=== PATIENT | female | born 1935 | race Caucasian/White ===

== ENCOUNTER 2023-12-03 17:31 | Inpatient (IN) | payer MEDICARE, SELFPAY ==
[2023-12-03] VITALS (8 sets, daily range): BP systolic 101–159; BP diastolic 65–90; BMI 21.7
--- NOTE | 2023-12-03 15:00 | ED.GENMED ---
History of Present Illness
<Tania Gustafson PA-C - Last Filed: 12/03/23 22:54>
General
Chief Complaint: Musculo-Skeletal Complaint
Time Seen by Provider: 12/03/23 15:00
Travel History
Have you had any contact with someone who has COVID-19?: Unable to Answer
Do you have any symptoms of coronavirus? Fever > 100 degrees, chills, cough, shortness of breath, sore throat, loss of taste or smell, muscle aches, or headache?: Unable to Answer
History of Present Illness
History of Present Illness:
88 y/o F with PMH of dementia, HTN presenting to the ER today with right hip pain following slip and fall. 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 Patient does not answer many of my questions
and she keeps repeating that she is in pain. She states that she slipped but is unable to recall other details of her fall. She is unsure if she hit her head. She denies headache, nausea, vomiting, chest pain, abdominal pain, shoulder pain.
Past History
<Tania Gustafson PA-C - Last Filed: 12/03/23 22:54>
Past History
ED Past Medical History: HTN, Hypercholesterolemia, Seizures (On Keppra for tremors) and Other (constipation)
ED Past Surgical History: None
Social History
Tobacco: Non-smoker
Alcohol: None
Drug: None
Personal:
Living: with family
Employment: Retired
Family History
Family History: Unable to obtain
Review of Systems
<Tania Gustafson PA-C - Last Filed: 12/03/23 22:54>
Review of Systems
All Other Systems: ROS reviewed and negative except as documented in HPI and ROS
Phy Exam
<Tania Gustfason PA-C - Last Filed: 12/03/23 22:54>
Physical Exam
Physical Exam:
General: patient is in no acute distress
Skin: warm and dry, no rashes or lesions, no ecchymosis, no lacerations
HEENT: head is normocephalic, atraumatic, no palpable hematoma
Cardiac: regular rate and rhythm, no murmurs
Pulm: normal respiratory effort, no tenderness to palpation of the chest wall, no crepitus
Abdomen: no tenderness to palpation
Musculoskeletal: patient seen spontaneously moving her cervical spine, no tenderness to palpation of the cervixal spine. right leg externally rotated and shortened, tender to palpation, 2+ popliteal pulses and 2+ dp/pt pulses.
Course
Sincerelt;Tania Gustafson PA-C - Last Filed: 12/03/23 22:54>
Orders/Labs/Results
Orders:
Orders
12/03/23 Breakfast
Cholesterol Lowering
12/03/23 15:21
CR Hip - RT w/wo Pel 2-3 Vw* Urgent
Comment:
Reason For Exam: right hip pain following fall
Include a pelvis x-ray?: Yes
12/03/23 15:28
Electrocardiogram (*1) Urgent
Reason for Study: PreOp
CT Head W/o Iv Contrast Urgent
Comment:
Reason For Exam: unwitnessed fall
12/03/23 15:30
Complete Blood Count/With Diff Urgent
Comprehensive Metabolic Panel Urgent
12/03/23 15:33
Type+Screen Urgent
PTT Urgent
Prothrombin Time Urgent
12/03/23 16:11
Morphine Sulfate 4 mg IV NOW STA
12/03/23 16:14
ORTHOPEDIC CONSULT Urgent
Consulting Provider: Bhavik Mohr
Was physician already notified: Yes
12/03/23 16:59
Potassium Chloride 10% Elixir [KCl Elixir] 40 meq PO NOW STA
12/03/23 17:00
Admit/Transfer Patient As Directed
Co-Sign Provider:
Level of Care: Inpatient admission
Assign to:: Medical/Surgical
Physician / Group: anna nielson
Diagnosis: right femoral neck fracture
Reason for Hospitalization: right femoral neck fracture
Expected length of stay greater than two midnights?: Yes
ELOS- Estimated Length of Stay in days: 3
I certify the patient meets the requirements for IP care: Yes
12/03/23 17:01
Code Status As Directed
Resuscitation Status: Do not resuscitate
Reached after discussion with pt or family/Healthcare POA: Yes
DNR Bracelet Application ONCE
12/03/23 17:14
Ketorolac [Toradol] 30 mg IV NOW STA
12/03/23 17:15
Acetaminophen 1000MG/100Ml [Ofirmev] 1,000 mg in 100 ml IV ONCE
Acetaminophen IV Indication:: No CA & No Enteral Access
12/03/23 20:08
Docusate Sodium [Colace] 100 mg PO BID
HYDROmorphone [Dilaudid] 0.5 mg IV Q4HPRN PRN
Levetiracetam [Keppra] 250 mg PO BID
Magnesium Hydroxide [Milk of Magnesia] 30 ml PO DAILYPRN PRN
Oxycodone [Roxicodone] 5 mg PO Q4HPRN PRN
Sennosides [Senokot] 17.2 mg PO BID
Simethicone [Mylicon] 80 mg PO MEALS
Tamsulosin [Flomax] 0.4 mg PO DAILYPRN PRN
12/03/23 20:08
Activity As Directed
Activity Level: Bedrest
Bladder Scan As Directed
Follow Bladder Retention/Intermittent Cath Algorithm?: Yes
PRN if no void in __ hours: 6
Comment: if not voiding 6 hrs upon arrival to floor, bladder scan & follow algorithm
Intake/ Output As Directed
Frequency: Per unit guidelines
Pneumatic Compression Sleeves As Directed
Type: Thigh high
Straight Cath As Directed
Frequency: Per Retention Algorithm
Additional Instructions: straight cath as needed per acute urinary retention algorithm for 24 hrs
Additional Instructions: for bladder scan greater than 400 mL
Vital Signs As Directed
Frequency: Per unit guidelines
DX Deep Vein Thrombosis Video Routine
12/03/23 21:00
Buspirone [BuSPAR] 7.5 mg PO BID
12/03/23 22:00
Pravastatin Sodium [Pravachol] 40 mg PO HS
12/04/23 00:00
Acetaminophen [Tylenol] 650 mg PO Q4HWA
12/04/23 08:00
Carboxymethylcellulose [Refresh Celluvisc Gel] 1 drops BOTH EYES DAILY
Famotidine [Pepcid] 20 mg PO Q72H
Fluoxetine HCl [Prozac] 10 mg PO DAILY
Swdifsnum-Xvj-Kcle [Femara] 2.5 mg PO DAILY
Abnormal Lab Results
12/03/23
15:30
RBC 4.07 L 10^6/uL
(4.20-5.40)
MCV 101.7 H fL
(81.0-99.0)
MCH 34.9 H pg
(27.0-31.0)
Absolute Neuts (auto) 6.8 H 10^3/uL
(1.4-6.5)
Absolute Lymphs (auto) 1.0 L 10^3/uL
(1.2-3.4)
Neutrophils % 81.1 H %
(42.2-75.2)
Lymphocytes % 11.6 L %
(20.5-51.1)
Potassium 3.4 L mmol/L
(3.5-5.1)
BUN 24 H mg/dl
(7-17)
Creatinine 0.5 L mg/dL
(0.6-1.0)
Glucose 119 H mg/dl
(70-99)
12/03/23 15:30
12/03/23 15:30
Vital Signs
Initial and Last Documented VS:
Initial Vital Signs
Temp Pulse Resp BP Pulse Ox
98.5 F 77 20 148/87 94
12/03/23 14:41 12/03/23 14:41 12/03/23 14:41 12/03/23 14:41 12/03/23 14:41
Last Documented Vital Signs
Temp Pulse Resp BP Pulse Ox
97.6 F 93 16 138/87 96
12/03/23 20:15 12/03/23 20:15 12/03/23 20:15 12/03/23 20:15 12/03/23 20:15
<René Martinez MD - Last Filed: 12/03/23 16:37>
Orders/Labs/Results
Orders:
Orders
12/03/23 Breakfast
Cholesterol Lowering
12/03/23 15:21
CR Hip - RT w/wo Pel 2-3 Vw* Urgent
Comment:
Reason For Exam: right hip pain following fall
Include a pelvis x-ray?: Yes
12/03/23 15:28
Electrocardiogram (*1) Urgent
Reason for Study: PreOp
CT Head W/o Iv Contrast Urgent
Comment:
Reason For Exam: unwitnessed fall
12/03/23 15:30
Complete Blood Count/With Diff Urgent
Comprehensive Metabolic Panel Urgent
12/03/23 15:33
Type+Screen Urgent
PTT Urgent
Prothrombin Time Urgent
12/03/23 16:11
Morphine Sulfate 4 mg IV NOW STA
12/03/23 16:14
ORTHOPEDIC CONSULT Urgent
Consulting Provider: Bhavik Mohr
Was physician already notified: Yes
12/03/23 16:59
Potassium Chloride 10% Elixir [KCl Elixir] 40 meq PO NOW STA
12/03/23 17:00
Admit/Transfer Patient As Directed
Co-Sign Provider:
Level of Care: Inpatient admission
Assign to:: Medical/Surgical
Physician / Group: anna nielson
Diagnosis: right femoral neck fracture
Reason for Hospitalization: right femoral neck fracture
Expected length of stay greater than two midnights?: Yes
ELOS- Estimated Length of Stay in days: 3
I certify the patient meets the requirements for IP care: Yes
12/03/23 17:01
Code Status As Directed
Resuscitation Status: Do not resuscitate
Reached after discussion with pt or family/Healthcare POA: Yes
DNR Bracelet Application ONCE
12/03/23 17:14
Ketorolac [Toradol] 30 mg IV NOW STA
12/03/23 17:15
Acetaminophen 1000MG/100Ml [Ofirmev] 1,000 mg in 100 ml IV ONCE
Acetaminophen IV Indication:: No CA & No Enteral Access
12/03/23 20:08
Docusate Sodium [Colace] 100 mg PO BID
HYDROmorphone [Dilaudid] 0.5 mg IV Q4HPRN PRN
Levetiracetam [Keppra] 250 mg PO BID
Magnesium Hydroxide [Milk of Magnesia] 30 ml PO DAILYPRN PRN
Oxycodone [Roxicodone] 5 mg PO Q4HPRN PRN
Sennosides [Senokot] 17.2 mg PO BID
Simethicone [Mylicon] 80 mg PO MEALS
Tamsulosin [Flomax] 0.4 mg PO DAILYPRN PRN
12/03/23 20:08
Activity As Directed
Activity Level: Bedrest
Bladder Scan As Directed
Follow Bladder Retention/Intermittent Cath Algorithm?: Yes
PRN if no void in __ hours: 6
Comment: if not voiding 6 hrs upon arrival to floor, bladder scan & follow algorithm
Intake/ Output As Directed
Frequency: Per unit guidelines
Pneumatic Compression Sleeves As Directed
Type: Thigh high
Straight Cath As Directed
Frequency: Per Retention Algorithm
Additional Instructions: straight cath as needed per acute urinary retention algorithm for 24 hrs
Additional Instructions: for bladder scan greater than 400 mL
Vital Signs As Directed
Frequency: Per unit guidelines
DX Deep Vein Thrombosis Video Routine
12/03/23 21:00
Buspirone [BuSPAR] 7.5 mg PO BID
12/03/23 22:00
Pravastatin Sodium [Pravachol] 40 mg PO HS
12/04/23 00:00
Acetaminophen [Tylenol] 650 mg PO Q4HWA
12/04/23 08:00
Carboxymethylcellulose [Refresh Celluvisc Gel] 1 drops BOTH EYES DAILY
Famotidine [Pepcid] 20 mg PO Q72H
Fluoxetine HCl [Prozac] 10 mg PO DAILY
Rwaozvkuj-Vmt-Yqfm [Femara] 2.5 mg PO DAILY
Abnormal Lab Results
12/03/23
15:30
RBC 4.07 L 10^6/uL
(4.20-5.40)
MCV 101.7 H fL
(81.0-99.0)
MCH 34.9 H pg
(27.0-31.0)
Absolute Neuts (auto) 6.8 H 10^3/uL
(1.4-6.5)
Absolute Lymphs (auto) 1.0 L 10^3/uL
(1.2-3.4)
Neutrophils % 81.1 H %
(42.2-75.2)
Lymphocytes % 11.6 L %
(20.5-51.1)
Potassium 3.4 L mmol/L
(3.5-5.1)
BUN 24 H mg/dl
(7-17)
Creatinine 0.5 L mg/dL
(0.6-1.0)
Glucose 119 H mg/dl
(70-99)
12/03/23 15:30
12/03/23 15:30
Vital Signs
Initial and Last Documented VS:
Initial Vital Signs
Temp Pulse Resp BP Pulse Ox
98.5 F 77 20 148/87 94
12/03/23 14:41 12/03/23 14:41 12/03/23 14:41 12/03/23 14:41 12/03/23 14:41
Last Documented Vital Signs
Temp Pulse Resp BP Pulse Ox
97.6 F 93 16 138/87 96
12/03/23 20:15 12/03/23 20:15 12/03/23 20:15 12/03/23 20:15 12/03/23 20:15
<Tania Gustafson PA-C - Last Filed: 12/03/23 22:54>
MDM/Problems Addressed
Differential Diagnosis Includes:
ddx include right hip fracture, right hip dislocation, musculoskeletal sprain/strain, intracerebral hemorrhage
MDM/Problems Addressed:
right hip pain
Chronic conditions affecting care: HTN and Neurological disorder (dementia)
Acute Exacerbation and/or Progression of Chronic Illness:
dementia
<Tania Gustafson PA-C - Last Filed: 12/03/23 22:54>
*Pulse Oximetry
Patient hypoxic: no
*Critical Care Note
Total Time (30-74mins, 75-104mins- exclusive of procedures): Not Applicable
Data Reviewed
Review of Other/Old Records Reveals: Discharge Summary (reviewed discharge summary from 07/09/21)
Source: patient and records
<Tania Gustafson PA-C - Last Filed: 12/03/23 22:54>
Patient Management
Discussion with other providers: Hospitalist and Other (orthopedics, plan for surgery tomorrow )
Escalation/DeEscalation of care consider admission/obs:
please see attending note
ED Attending Note
<BOBY aBron-Crispin - Last Filed: 12/03/23 22:54>
-
Portions of this chart may have been created with voice recognition software.� Occasional wrong word or��sound alike� substitutions may have occurred due to the inherent limitations of voice recognition software.
<René Martinez MD - Last Filed: 12/03/23 16:37>
ED Attending Note
Patient seen and examined by attending physician: Yes
ED Attending Note:
HPI: 88-year-old female with history as document presents from [facility] for evaluation after a fall. Patient apparently had an unwitnessed fall today found by staff with significant right hip pain. Patient continues to complain of pain and
points to her right hip but is otherwise limited as a historian�she has significant dementia and is primarily Icelandic-speaking and even with supervisor prop making very difficult to communicate. No reported head trauma�mental status reportedly at baseline.
She is not on any blood thinners per medication list.
ROS: N/A�dementia
Physical exam:
General: Awake, alert, lying in bed complaining of pain in her right hip
Head: Normocephalic, atraumatic
Eyes: Conjunctiva normal, pupils equal round reactive to light bilaterally
Throat: Airway intact, handling secretions
Neck: Trachea midline, no tenderness in the cervical spine
Lungs: Breathing comfortably no distress
Heart: Regular rate; no chest wall or rib tenderness
Abd: Soft, non distended, nontender
Neuro: Moving all extremities including distal right lower extremity
Skin: no rash
Extremities: Right lower extremity shortened and externally rotated, significant pain with attempted passive range of motion of the right hip including internal and external rotation; she has a good palpable right DP pulse; rest of extremities
atraumatic and allows for passive range of motion without discomfort
Differential diagnosis: Hip fracture, hip dislocation, hip contusion
Medical decision makin-year-old female presents after an unwitnessed fall with a right hip injury. She has findings right hip fracture on exam. Neurovascularly intact. No other injuries noted on secondary survey. Placed an IV check labs
including a CBC and a CMP, coags, type and screen. Check EKG. Will send for CT head in an abundance of caution although no reported head trauma no signs of head trauma. Check an x-ray of the hip to confirm fracture. Treat pain. Reassess after
the above.
Labs reviewed: CBC and CMP essentially unremarkable. EKG shows sinus rhythm. CT head negative. X-ray of the hip reviewed by me shows fracture. Discussed with orthopedics will plan tentatively for OR in the morning. PA discussed with hospitalist
for admission.
Chronic conditions affecting care: Dementia
Acute exacerbation or progression of chronic illness: N/A
History source: Patient, records, penitentiary, ambulance crew
Data reviewed: Records
Medications/testing considered: N/A
Social determinants of health: N/A
Discussion with other providers: Orthopedics, hospitalist
Discharge Plan
Departure
Patient Disposition: Admit
Date of Disposition: 12/03/23
Time of Disposition: 16:28
Admit to: Med/Surg
Presentation/result/management discussed w/ accepting MD/DO: Hospitalist
Patient with high blood pressure during this ER visit?: Yes
Condition: Fair
Discharge Problem:
Closed fracture of right hip
Interventions
Interventions:
*Risk Screen - Suicide Last Done: 12/03/23 14:41
*General Assessment Last Done: 12/03/23 14:41
*Neglect/Abuse Screening Last Done: 12/03/23 14:41
ED- Fall Risk Assessment Last Done: 12/03/23 15:30
*ED COVID-19 Vaccine History Last Done: 12/03/23 20:20
*Nursing Disposition Last Done: 12/03/23 20:20
ED-Musculoskeletal Assessment Last Done: 12/03/23 15:30
Discharge Date and Time
Discharge Date/Time: 12/03/23 20:21
[2023-12-03 15:36] LABS: % Basophils 0.4 % (0-2); % Eosinophils 0.6 % (0-6); % Immature Granulocytes 0.5 % (0-0.5); % Lymphocytes 11.6 % (20.5-51.1); % Monocytes 5.8 % (1.7-9.3); % Neutrophils 81.1 % (42.2-75.2); Absolute Eosinophils 0.1 10^3/uL (0-0.7); Absolute Monocytes 0.5 10^3/uL (0.1-0.6); Absolute Neutrophils 6.8 10^3/uL (1.4-6.5); Hematocrit 41.4 % (37.0-47.0); Hemoglobin 14.2 g/dL (12.0-16.0); Mean Corp Hgb Conc. 34.3 g/dL (33.0-37.0); Mean Corpuscular Hgb 34.9 pg (27.0-31.0); Mean Corpuscular Volume 101.7 fL (81.0-99.0); Mean Platelet Volume 9.5 fL (7.4-10.4); Nucleated Red Blood Cells % 0 %; Platelet Count 242 10^3/uL (130-400); Red Blood Cell Count 4.07 10^6/uL (4.20-5.40); White Blood Cell Count 8.4 10^3/uL (4.8-10.8)
[2023-12-03 15:50] LABS: APTT 25.3 Sec (23.4-35.0); INR 0.97; PT 12.7 Sec (11.4-14.6)
[2023-12-03 16:03] LABS: ALT (SGPT) 28 U/L (0-35); AST (SGOT) 31 U/L (14-36); Albumin 4.2 g/dl (3.5-5.0); Alkaline Phosphatase 83 U/L (38-126); Blood Urea Nitrogen 24 mg/dl (7-17); Calcium 9.6 mg/dl (8.4-10.2); Carbon Dioxide 28 mmol/L (22-30); Chloride 103 mmol/L (98-107); Glucose 119 mg/dl (70-99); Potassium 3.4 mmol/L (3.5-5.1); Sodium 138 mmol/L (135-145); Total Bilirubin 0.6 mg/dl (0.2-1.3); Total Protein 6.5 g/dl (6.3-8.2); eGFR > 60.00
[2023-12-03] MEDS: MORPHINE SULFATE 4 MG IV (16:14)
--- NOTE | 2023-12-03 16:33 | HPS.HSE ---
Addendum entered and electronically signed by Cynthia Juárez MD 12/03/23 17:35:
Patient seen and examined independently--agree with AUTOMOTIVE GENERATOR REPAIRER note--used language line to try to communicate with patient--patient complains of pain in her right leg, states nothing else is wrong, does have family in the area but did not pursue any further
inquiries because of the acute pain
GENERAL: Elderly chronically ill-appearing female in significant pain
HEENT: NC/AT--poor dentition
HEART: regular rate and rhythm, +S1, +S2
LUNGS : clear to auscultation bilaterally
ABDOM: soft, nontender, nondistended, + bowel sounds
EXT: no cyanosis, clubbing, or edema--right leg shortened and externally rotated
fall--unclear trigger for the fall--sustained right femoral neck fracture--patient significant pain--dose IV Toradol and IV Tylenol now--fentanyl did not work, received 4 mg of morphine 30 minutes prior which also has not taken effect--moving
forward, will change to Dilaudid--orthopedics consulted--plan for OR in a.m.--head CT negative
hypokalemia unclear cause--replete
Hyperlipidemia--statin continued
Myoclonus-- Continue Keppra.�
Breast cancer--Continue Femara
depression/anxiety--buspirone continued--fluoxetine continued
GERD--PPI continued
DVT prophylaxis-scd
CODE status--DNR
Original Note:
Family Physician
-
Family Physician: Francisco Lu
Chief Complaint
-
fall
History of Present Illness
88 year old with PMH for HTN, HLD, breast ca, dementia, anxiety, depression, myoclonus presented to us s/p fall. patient is poor historian. asking for pain medication. attempted language line but was not helpful. patient constantly crying loud with
right hip pain.
x ray with right femoral neck fracture. admitting for further management.
Medical History
Past Medical History
Past Medical History: Reports Other
Additional Past Medical History:
GERD
HTN
breat ca
dementia
anxiety disorder
depression
myoclonus
Past Surgical History: Reports None
Social History
Unable to obtain full social history at this time due to: Dementia
Family History
Family History: Not pertinent
Allergies / Home Medications
Allergies reflects when Allergies were last updated in [facility].
Home Medications with original date entered in [facility]
Allergy/Medication List:
Allergies
Allergy/AdvReac Type Severity Reaction Status Date / Time
No Known Allergies Allergy Unverified 06/28/21 22:10
Home Medications
acetaminophen 325 mg tablet 650 mg PO DAILY PRN mild pain/temp>100F 06/28/21
carboxymethylcellulose sodium 0.25 % eye drops in a dropperette (TheraTears) 1 drp BOTH EYES DAILY Eye condition 06/28/21
cholecalciferol (vitamin D3) 25 mcg (1,000 unit) tablet 1,000 units PO DAILY Supplement 06/28/21
letrozole 2.5 mg tablet (Femara) 2.5 mg PO DAILY Cancer 06/28/21
pravastatin 40 mg tablet 40 mg PO HS High cholesterol ##0 06/28/21
fluoxetine 10 mg capsule 10 mg PO DAILY Mental Health 07/06/21
docusate sodium 100 mg capsule 100 mg PO BID 07/09/21
famotidine 20 mg tablet 20 mg PO Q72H 07/09/21
levetiracetam 250 mg tablet 250 mg PO BID 07/09/21
acetaminophen 325 mg tablet 650 mg PO TID 12/03/23
bisacodyl 10 mg rectal suppository (Dulcolax (bisacodyl)) 10 mg HI DAILY PRN if mom ineffective after 24hrs 12/03/23
buspirone 7.5 mg tablet 7.5 mg PO BID 12/03/23
diclofenac sodium 1 % topical gel 1 ea topical BID 12/03/23
lidocaine 5 % topical cream (Hemorrhoidal Relief) 1 applic topical Q6H PRN rectal pain 12/03/23
magnesium hydroxide 400 mg/5 mL oral suspension (Milk of Magnesia) 30 ml PO DAILY PRN if no bm x 3 days 12/03/23
polyethylene glycol 3350 17 gram oral powder packet (Miralax) 17 g PO Q48H 12/03/23
sennosides 8.6 mg tablet (senna) 8.6 mg PO HS 12/03/23
simethicone 80 mg chewable tablet 80 mg PO MEALS 12/03/23
sodium phosphates 19 gram-7 gram/118 mL enema (Fleet Enema) 118 ml HI DAILY PRN if dulcolax ineffective after 24hrs 12/03/23
Review of Systems
-
Unable to obtain full review of systems at this time due to: Acuity
Physical Exam
Vital Signs
Vital Signs
Temp Pulse Resp BP Pulse Ox
98.5 F 77 20 148/87 94
12/03/23 14:41 12/03/23 14:41 12/03/23 14:41 12/03/23 14:41 12/03/23 14:41
Physical Exam
General: Well Developed, Well Nourished and No Apparent Distress
HEENT: NormoCephalic, Moist mucous membranes and Atraumatic
Respiratory: Clear
Cardiac: S1/S2 and Regular Rhythm; No Murmur or Rub
GI: Soft, Non Tender, Non Distended and Normal Bowel Sounds; No Organomegaly
Rectal: Deferred by Provider
Musculoskeletal: No Clubbing, No Cyanosis and Other (right LE shortened, externally rotated)
Skin: No Rash
Neuro: Nonfocal/grossly intact
Psych: Confused
Laboratory Results
-
12/03/23 15:30
12/03/23 15:30
Laboratory Results
PT 12.7 Sec (11.4-14.6) 12/03/23 15:33
INR 0.97 12/03/23 15:33
APTT 25.3 Sec (23.4-35.0) 12/03/23 15:33
Total Bilirubin 0.6 mg/dl (0.2-1.3) 12/03/23 15:30
AST 31 U/L (14-36) 12/03/23 15:30
ALT 28 U/L (0-35) 12/03/23 15:30
Alkaline Phosphatase 83 U/L (38-126) 12/03/23 15:30
Data Reviewed
-
Diagnostic Radiology: Report Reviewed by me
Lab Data: Labs Reviewed by me
Impression/Plan
-
#fall/ right femoral neck fracture
-hip precaution
-npo after MN
-Tylenol, oxy, Dilaudid prn for pain
-head CT with No acute intracranial abnormality.
-hip x ray with Right femoral neck fracture, as above.
-orthopedics consulted
#hypokalemia unclear cause
-k 3.4
-oral kcl
-ctm
#Hyperlipidemia
-statin continued
#Myoclonus: Continue Keppra.�
#Breast cancer: Continue Femara
#depression/anxiety
-buspirone continued
-fluoxetine continued
#GERD
-PPI continued
#DVT prophylaxis
-scd
#CODE status
-DNR
[2023-12-03] MEDS: KCL ELIXIR 40 MEQ PO (17:30)
[2023-12-03] MEDS: TORADOL 30 MG IV (17:31)
[2023-12-03] MEDS: OFIRMEV 100 IV (17:43)
--- NOTE | 2023-12-03 18:54 | W.PN.UPDATE ---
Update Note
Progress Note Update
88-year-old female resident of [facility] with history of dementia. This patient sustained a fall earlier today injuring her right hip. She has a history of hypertension, hyperlipidemia, breast carcinoma, dementia, anxiety,
depression, myoclonus, and GERD. Diagnostic studies have confirmed a displaced right hip femoral neck fracture. Treatment options have been discussed with the patient's , Akil, at [phone]. Risks, benefits, and possible
complications have been discussed. Questions have been answered. Patient's consents for Patricia to undergo right hip cemented bipolar endoprosthesis as well as a blood transfusion if required during this admission. Surgical site has been
marked. Full consult has been dictated in [facility]. Surgery is tentatively for the morning of Wednesday, December 04, pending medical clearance and availability of operating room.
--- NOTE | 2023-12-03 20:00 | PTCARENOTE ---
Received patient via stretcher accompanied by ED PCT. Patient transferred into bed without difficulty. Patient Hebrew speaking, cork insulation setter phone at bedside but patient screaming 'give me the shot'. Unable to participate in admission/assessment at
this time. Hygiene care provided, call schumacher within reach, VSS. PRN Dilaudid given as per orders, see MAR.
[2023-12-03] MEDS: DILAUDID 0.5 MG IV (20:22)
[2023-12-03] MEDS: KEPPRA PO (23:14)
[2023-12-03] MEDS: SENOKOT PO (23:14)
[2023-12-03] MEDS: PRAVACHOL PO (23:14)
[2023-12-03] MEDS: COLACE PO (23:14)
[2023-12-03] MEDS: MYLICON PO (23:14)
[2023-12-04] VITALS (42 sets, daily range): BP systolic 74–117; BP diastolic 38–90
[2023-12-04] MEDS: ROXICODONE 5 MG PO ×4 (00:08→20:00)
[2023-12-04] MEDS: TYLENOL PO ×4 (00:18→23:56)
[2023-12-04] MEDS: DILAUDID 0.5 MG IV (04:25)
[2023-12-04] MEDS: TYLENOL 650 MG PO ×3 (04:25→20:01)
[2023-12-04 07:16] LABS: Hemoglobin 12.8 g/dL (12.0-16.0); Mean Corp Hgb Conc. 33.7 g/dL (33.0-37.0); Mean Corpuscular Hgb 34.2 pg (27.0-31.0); Mean Corpuscular Volume 101.6 fL (81.0-99.0); Mean Platelet Volume 10.4 fL (7.4-10.4); Platelet Count 199 10^3/uL (130-400); Red Blood Cell Count 3.74 10^6/uL (4.20-5.40); White Blood Cell Count 6.7 10^3/uL (4.8-10.8)
[2023-12-04 07:22] LABS: Blood Urea Nitrogen 27 mg/dl (7-17); Calcium 9.4 mg/dl (8.4-10.2); Carbon Dioxide 28 mmol/L (22-30); Chloride 102 mmol/L (98-107); Estimated Creatinine Clearance 60 ml/min; Glucose 138 mg/dl (70-99); Potassium 3.4 mmol/L (3.5-5.1); Sodium 138 mmol/L (135-145); eGFR > 60.00
--- NOTE | 2023-12-04 10:23 | W.PN.HOSP.TC ---
Today's Communication/Plan
-
seen in PACU
as per ortho
Assessment / Plan
Assessment / Plan
pt is an 88 year old female
fall--unclear trigger for the fall--sustained right femoral neck fracture--apprec ortho--s/p repair--cont Dilaudid, tylenol, oxy for pain--post op will need PT/OT
hypokalemia unclear cause--replete
Hyperlipidemia--statin continued
Myoclonus-- Continue Keppra.�
Breast cancer--Continue Femara
depression/anxiety--buspirone continued--fluoxetine continued
GERD--PPI continued
DVT prophylaxis-scd
CODE status--DNR
Anticipated Discharge: > 48 hours
Subjective/Interval History
-
Date of Service: December 04, 2023
pt seen in PACU, just came out of OR
Objective Data
-
Labs:
Laboratory Results
12/04/23
05:31
WBC 6.7
Hgb 12.8
Hct 38.0
Plt Count 199
Sodium 138
Potassium 3.4 L
Chloride 102
Carbon Dioxide 28
BUN 27 H
Creatinine 0.4 L
Glucose 138 H
Calcium 9.4
Vital Signs:
max temp for 24 hours
12/03/23
14:41
Temp 98.5 F
Vital Signs
Temp Pulse Resp BP Pulse Ox
98.4 F 91 18 106/67 99
12/04/23 07:44 12/04/23 10:15 12/04/23 10:15 12/04/23 10:09 12/04/23 10:15
I&O
12/03/23 12/04/23 12/05/23
06:59 06:59 06:59
Intake Total 160 / 160
Balance 160 / 160
Review of Systems
-
Unable to obtain full review of systems at this time due to: Other (just came out of OR)
Physical Exam
-
General: Appears Chronically Ill
HEENT: Normocephalic and Atraumatic
Respiratory: Rhonchi
Cardiac: Regular Rhythm and S1/S2
GI: Soft, Nontender, Nondistended and Normal Bowel Sounds
Musculoskeletal: No Clubbing, No Cyanosis and No Edema
Neuro: Awake
Psych: Calm
[2023-12-04] MEDS: SUBLIMAZE 25 MCG IV (10:29)
[2023-12-04] MEDS: NSS 1000 IV (10:46)
[2023-12-04] MEDS: NEO-SYNEPHRINE 250 IV (13:05)
[2023-12-04] MEDS: MYLICON PO ×2 (14:49)
[2023-12-04] MEDS: COLACE PO (14:49)
[2023-12-04] MEDS: SENOKOT PO (14:50)
[2023-12-04] MEDS: REFRESH CELLUVISC GEL 1 DROPS BOTH EYES (14:57)
[2023-12-04] MEDS: KCL 20 MEQ PO (14:57)
[2023-12-04] MEDS: PEPCID 20 MG PO (14:57)
[2023-12-04] MEDS: FEMARA 2.5 MG PO (14:57)
[2023-12-04] MEDS: KEPPRA PO (14:58)
[2023-12-04] MEDS: PROZAC PO (15:01)
--- NOTE | 2023-12-04 15:51 | PTCARENOTE ---
Addendum entered by Karthik Segundo RN 12/04/23 18:51:
Aquacell dressing C/D/I; Nuerovascular check done; Some movement noted in RLE. Denies pain at this time
Original Note:
Rec'd Pt from PACU, post-op right dayday-arthroplasty. Transferred to IMU due to hypotension and start of TATA drip. Pt uzbek-speaking (speaks some greenlandic) and demented at baseline. R arm INT came out during move to bed - attempted to move TATA
drip moved to LFA INT and line would no longer flush. VAT notified to place new line. Will continue to monitor and assess.
[2023-12-04] MEDS: ANCEF 5 IV (16:24)
[2023-12-04] MEDS: DILAUDID 0.25 MG IV ×2 (17:45→22:03)
[2023-12-04] MEDS: MYLICON 80 MG PO (17:45)
[2023-12-04] MEDS: ASPIRIN 325 MG PO (17:45)
[2023-12-04] MEDS: SENOKOT 17.1999999999999993 MG PO (20:01)
[2023-12-04] MEDS: PRAVACHOL 40 MG PO (20:01)
[2023-12-04] MEDS: COLACE 100 MG PO (20:01)
[2023-12-04] MEDS: KEPPRA 250 MG PO (20:45)
[2023-12-05] VITALS (9 sets, daily range): BP systolic 94–120; BP diastolic 51–103; PULSE 82; O2SAT 94
[2023-12-05] MEDS: ANCEF 5 IV (00:06)
--- NOTE | 2023-12-05 00:37 | PTCARENOTE ---
Pt received at beginning of shift resting in bed. AAOx1 to name. Confused. Admits to pain, unable to describe. Yells out 'don't leave me!' Brings arms to chest and yells 'I'm nervous!' Emotional support given. Aquacel dressing to right hip c/d/i.
Neurovascular checks to right LE as documented. VSS. Afebrile. SR/ST on CM. Slightly tachypneic when anxious. POX 1L 96%. Grossly incontinent large amount urine. Pt cleansed and changed. Purewick placed. LAC INT not patent, pulled out underneath
dressing. Left wrist INT pulled by pt and bleeding. Again, pt cleansed and changed. New INT in right forearm. Mikye gtt infusing at 20mcq/min (6ml/hr). SBP >90 for past 4 hrs. Tapered off. Bev OSULLIVAN TT'd and made aware. IVF's infusing as ordered.
Taking PO meds without issue. Venous foot pumps on and working. No change from previous assessment. Call schumacher remains within reach. Will continue to monitor.
[2023-12-05] MEDS: DILAUDID 0.25 MG IV ×3 (01:47→22:48)
[2023-12-05] MEDS: TYLENOL PO ×3 (03:53→16:05)
[2023-12-05] MEDS: NSS 1000 IV (03:53)
--- NOTE | 2023-12-05 05:15 | PTCARENOTE ---
Pt received Dilaudid throughout shift for pain to right hip. Aquacel dressing remains c/d/i. Ice pack applied intermittently for 20 mins on/off. Pt has good pain relief with Dilaudid when given. Pt grossly incontinent urine x 1 overnight. Purewick
was placed with only 50mls in canister. Bladder scanned for only 137mls at approx 0130. Neurovascular checks unchanged. AM labs obtained. Pt maintained on turning schedule. Call schumacher remains within reach. Will continue to monitor.
[2023-12-05 05:19] LABS: Hematocrit 26.8 % (37.0-47.0); Mean Corp Hgb Conc. 33.6 g/dL (33.0-37.0); Mean Corpuscular Volume 104.3 fL (81.0-99.0); Mean Platelet Volume 10.4 fL (7.4-10.4); Platelet Count 149 10^3/uL (130-400); Red Blood Cell Count 2.57 10^6/uL (4.20-5.40); Red Cell Dist. Width 13.2 % (11.5-14.5); White Blood Cell Count 7.5 10^3/uL (4.8-10.8)
[2023-12-05 05:37] LABS: Blood Urea Nitrogen 22 mg/dl (7-17); Calcium 8.2 mg/dl (8.4-10.2); Carbon Dioxide 29 mmol/L (22-30); Chloride 103 mmol/L (98-107); Estimated Creatinine Clearance 60 ml/min; Glucose 100 mg/dl (70-99); Potassium 4.2 mmol/L (3.5-5.1); Sodium 136 mmol/L (135-145); eGFR > 60.00
[2023-12-05] MEDS: REFRESH CELLUVISC GEL 1 DROPS BOTH EYES (08:04)
[2023-12-05] MEDS: KEPPRA 250 MG PO ×2 (08:04→19:43)
[2023-12-05] MEDS: MYLICON 80 MG PO (08:04)
[2023-12-05] MEDS: FEMARA 2.5 MG PO (08:05)
[2023-12-05] MEDS: COLACE 100 MG PO ×2 (08:05→19:42)
[2023-12-05] MEDS: ASPIRIN 325 MG PO (08:05)
[2023-12-05] MEDS: SENOKOT 17.1999999999999993 MG PO ×2 (08:05→19:42)
[2023-12-05] MEDS: TYLENOL 650 MG PO ×3 (08:06→23:08)
[2023-12-05] MEDS: PROZAC 10 MG PO (08:17)
--- NOTE | 2023-12-05 08:24 | W.PN.HOSP.TC ---
Today's Communication/Plan
-
transfer to 2S
PT/OT
d/c planning
Assessment / Plan
Assessment / Plan
pt is an 88 year old female
fall--unclear trigger for the fall--sustained right femoral neck fracture--apprec ortho--s/p repair--pain better--cont Dilaudid, tylenol, oxy for pain--post op will need PT/OT
post op hypotension--unclear cause--possible anesthesia effect--was on kamari now off--transfer back to 2S
acute anemia due to blood loss from long bone fracture and post op dilutional--follow--now need for transfusion currently
hypokalemia --unclear cause--replete
Hyperlipidemia--statin continued
Myoclonus-- Continue Keppra.�
Breast cancer--Continue Femara
depression/anxiety--buspirone continued--fluoxetine continued
GERD--PPI continued
DVT prophylaxis-scd
CODE status--DNR
transfer back to 2S
Anticipated Discharge: 24 - 48 hours
Subjective/Interval History
-
Date of Service: December 05, 2023
hip pain better
Objective Data
-
Labs:
Laboratory Results
12/05/23
04:33
WBC 7.5
Hgb 9.0 L D
Hct 26.8 L
Plt Count 149 D
Sodium 136
Potassium 4.2
Chloride 103
Carbon Dioxide 29
BUN 22 H
Creatinine 0.4 L
Glucose 100 H
Calcium 8.2 L
Vital Signs:
max temp for 24 hours
12/04/23
23:52
Temp 97.8 F
Vital Signs
Temp Pulse Resp BP Pulse Ox
97.8 F 78 14 102/57 100
12/05/23 03:47 12/05/23 06:00 12/05/23 06:00 12/05/23 06:00 12/05/23 06:00
I&O
12/04/23 12/05/23 12/06/23
06:59 06:59 06:59
Intake Total 160 / 160 2129
Output Total 50 / 50
Balance 160 / 160 2079
Review of Systems
-
Unable to obtain full review of systems at this time due to: Language Barrier
Physical Exam
-
General: Appears Chronically Ill
HEENT: Normocephalic and Atraumatic
Respiratory: Clear to Auscultation; Negative Wheezes or Rhonchi
Cardiac: Regular Rhythm and S1/S2; Negative Murmur
GI: Soft, Nontender, Nondistended and Normal Bowel Sounds
Musculoskeletal: No Clubbing, No Cyanosis and No Edema
Neuro: Awake and Alert
--- NOTE | 2023-12-05 09:20 | W.PN.ORTHO ---
Today's Communication / Plan
-
Appreciate Dr. Juárez, continue Tx
IMU-->2S transfer within the hour per Dr. ARVIZU
Trend Hgb, however would expect this drop from yesterday (Fx/Sx/dilutional). Currently 9.0, will hold on transfusion for now
PT/OT if deemed safe, THPs x 6 weeks
WBAT B/L LEs on walker/assistance
ASA 325mg daily x 4 weeks for ppx
Dressing to remain 10 days
Leeann out in 2 weeks (out at [facility] [place])
If leeann out at [facility] outpatient Ortho follow-up in 4 weeks
Assessment
.
Distal Motor Intact: Yes
Dressing:
Clean, dry and intact. Aquacel in place right hip
Assessment:
POD#1 Right Hip Ricardo
Calf soft, nontender
DNVI RLE
Plan
.
Surgery / Date: Right hip Ricardo Dec 11 (Fani)
DVT Prophylaxis: Aspirin
Activity:
Out of bed. WBAT RLE on walker/assistance
PT/OT. THPs x 6 weeks
Discharge Plan: [facility]
Subjective
.
.:
Patient resting comfortably this AM. Language barrier, however she reports better pain control
Vital Signs and Labs
.
Vital Signs and Labs:
Lab Results
12/05/23 04:33
12/05/23 04:33
Temp Pulse Resp BP Pulse Ox
98.6 F 78 14 102/57 97
12/05/23 08:36 12/05/23 06:00 12/05/23 06:00 12/05/23 06:00 12/05/23 08:56
PT 12.7 Sec (11.4-14.6) 12/03/23 15:33
INR 0.97 12/03/23 15:33
--- NOTE | 2023-12-05 10:30 | PTCARENOTE ---
Received patient from IMU. Assessment completed and documented in shift assessment.
Completed AM/incontinence care with PCT. Replaced purewick. Patient appeared to be in discomfort and medicated with IV Dilaudid.Attempted to use video special effects designer because patient began crying out. Unable to get a full understanding of what patient
was yelling about. Glue Mounter Operator stated that patient said 'I'm late for [facility]/I'm feeling loose. I'm uncomfortable from being in this position.' Explained to patient via special effects designer services that she was in the hospital, and that I gave her pain
medication. Patient drifting off to sleep.
--- NOTE | 2023-12-05 11:24 | CM ---
Addendum entered by Jose Thomas 12/05/23 13:41:
CM met with pt's son Anurag and spoke to pt's daughter Yue on conference call, updated on discharge planning progress. Both pt's son Anurag and daughter Yue agree opt returns back to [facility] for a detention care with skilled services that
recommended by PT and OT.
IMM reviewed with pt's son Anurag, signed, placed in chart, pt's son has a copy.
Pt's clinical faxed to [facility] for review.
D/C plan: return back to [facility] for a detention care with skilled services.
Original Note:
CM following re: discharge planning.
Reviewed pt's chart, met with pt and spoke to pt's son Anurag [phone] and spoke to [facility] nursing cashiers supervisor Paula.
Pt is an 88 year old female, admitted with primary dx of POD#1 Right Hip Ricardo.
Pt is primary Tristanian speaking, information obtained from [facility] nursing cashiers supervisor Paula. Per Paula, pt has been a buttermaker care resident at [facility] since 07/11/2021, on Medicaid bed hold. Pt used to live with her
Yao [phone] in a [facility], has daughter Yue [phone], daughter Christi [phone] and son Anurag [phone]. Per nursing cashiers supervisor Paula, pt ambulates with a walker at baseline and pt will be accepted back when medically stable.
CM spoke pattie pt's son Anurag and he stated he is in [place] today and he will come to to meet with his mother around 12:30 p.m. Per son Anurag, pt will return back to [facility] when medically stable.
[facility] nursing report: [phone]
Discharge instructions fax: [phone]
D/C plan: return back to [facility] for skilled services and to continue on buttermaker care.
CM will follow to assist pt with discharge back to [facility].
[2023-12-05] MEDS: MYLICON PO ×2 (12:41→17:43)
[2023-12-05] MEDS: PRAVACHOL 40 MG PO (21:29)
[2023-12-06 00:15] VITALS: BP 96/54
[2023-12-06] MEDS: TYLENOL 650 MG PO ×3 (05:23→13:00)
[2023-12-06] MEDS: DILAUDID 0.25 MG IV (05:33)
[2023-12-06 06:21] LABS: Hematocrit 24.1 % (37.0-47.0); Hemoglobin 8.2 g/dL (12.0-16.0); Mean Corpuscular Hgb 34.9 pg (27.0-31.0); Mean Corpuscular Volume 102.6 fL (81.0-99.0); Mean Platelet Volume 10.4 fL (7.4-10.4); Platelet Count 137 10^3/uL (130-400); Red Blood Cell Count 2.35 10^6/uL (4.20-5.40); White Blood Cell Count 6.6 10^3/uL (4.8-10.8)
[2023-12-06 06:57] LABS: ALT (SGPT) 255 U/L (0-35); AST (SGOT) 154 U/L (14-36); Albumin 2.3 g/dl (3.5-5.0); Alkaline Phosphatase 217 U/L (38-126); Blood Urea Nitrogen 19 mg/dl (7-17); Calcium 8.2 mg/dl (8.4-10.2); Carbon Dioxide 25 mmol/L (22-30); Chloride 103 mmol/L (98-107); Estimated Creatinine Clearance 60 ml/min; Glucose 79 mg/dl (70-99); Magnesium 1.9 mg/dl (1.6-2.3); Potassium 3.5 mmol/L (3.5-5.1); Sodium 133 mmol/L (135-145); Total Bilirubin 0.7 mg/dl (0.2-1.3); Total Protein 4.2 g/dl (6.3-8.2); eGFR > 60.00
[2023-12-06 07:04] VITALS: BP 104/59
[2023-12-06] MEDS: REFRESH CELLUVISC GEL 1 DROPS BOTH EYES (08:08)
[2023-12-06] MEDS: ASPIRIN 325 MG PO (08:09)
[2023-12-06] MEDS: SENOKOT 17.1999999999999993 MG PO (08:09)
[2023-12-06] MEDS: FEMARA 2.5 MG PO (08:13)
[2023-12-06] MEDS: PROZAC 10 MG PO (08:13)
[2023-12-06] MEDS: MYLICON 80 MG PO ×2 (08:13→13:00)
[2023-12-06] MEDS: COLACE 100 MG PO (08:13)
[2023-12-06] MEDS: KEPPRA 250 MG PO (08:14)
[2023-12-06] MEDS: ROXICODONE 5 MG PO ×2 (08:29→13:00)
--- NOTE | 2023-12-06 09:45 | W.PN.ORTHO ---
Today's Communication / Plan
-
Appreciate the primary team, continue Tx
Trend Hgb, however would expect this drop from surgery (Fx/Sx/dilutional). Currently 8.2 down from 9.0- will defer to the primary team regarding transfusion
PT/OT if deemed safe, THPs x 6 weeks
WBAT B/L LEs on walker/assistance
ASA 325mg daily x 4 weeks for ppx
Dressing to remain 10 days post-op
Leeann out in 2 weeks (out at [facility] [place])
If leeann out at [facility] outpatient Ortho follow-up in 4 weeks
Assessment
.
Distal Motor Intact: Yes
Dressing:
Clean, dry and intact. Aquacel in place right hip
Assessment:
POD#2 Right hip Ricardo
Overall seems to be feeling OK
Calf soft, nontender
DNVI RLE
Plan
.
Surgery / Date: Right hip Ricardo Dec 11 (Fani)
DVT Prophylaxis: Aspirin
Activity:
Out of bed. WBAT B/L LEs on walker/assistance
PT/OT, THPs x 6 weeks
Discharge Plan: SNF
Discharge Information:
SNF
Subjective
.
.:
Patient resting comfortably.
Vital Signs and Labs
.
Vital Signs and Labs:
Lab Results
12/06/23 05:21
12/06/23 05:21
Temp Pulse Resp BP Pulse Ox
97.6 F 90 14 104/59 94
12/06/23 07:04 12/06/23 07:04 12/06/23 07:04 12/06/23 07:04 12/06/23 09:16
PT 12.7 Sec (11.4-14.6) 12/03/23 15:33
INR 0.97 12/03/23 15:33
--- NOTE | 2023-12-06 11:21 | CM ---
Addendum entered by Donna De Guzman RN 12/06/23 13:44:
Message and contact information left for the patient's son Anurag with regards to discharge today back to SNF.
Original Note:
Reviewed the chart notes. Patient POD#2 right hip dayday. Patient is from [facility]. CM continues to be available to patient/family and is monitoring medical plan for needs at discharge.
Plan: Discharge back to [facility] when medically stable.
Call report to: [phone]
Fax report to: [phone]
Medical necessity and transport forms on chart.
--- NOTE | 2023-12-06 14:05 | W.PN.HOSP.TC ---
Today's Communication/Plan
-
d/c snf
Assessment / Plan
Assessment / Plan
pt is an 88 year old female
Right femoral neck fracture
Fall
-s/p right hip bipolar endoprosthesis placement
-To be maintained on aspirin 325 mg daily
-pt/ot as tolerated
-discharge to snf rehab
post op hypotension--unclear cause--resolved
acute anemia due to blood loss from long bone fracture and post op dilutional-- hbg 8.2 today, no indication for sx, oral iron supplement, recheck in 1 week
Transaminitis - new mild. hold statin. Possible hypotension related. recheck LFT in 1 week
hypokalemia --replaced .
Hyperlipidemia
Myoclonus-- Continue Keppra.�
Breast cancer--Continue Femara
depression/anxiety--buspirone continued--fluoxetine continued
GERD--PPI continued
DVT prophylaxis-scd
CODE status--DNR
More than 30 minutes spent in discharge including
Final examination of the patient
Summarizing hospital stay
Instructions for continuing care to all relevant caregivers
Preparation of discharge records, prescriptions, and referral forms
Total time spent (in minutes): 40 mins
Anticipated Discharge: Today
Subjective/Interval History
-
Date of Service: December 06, 2023
Language barrier
language line used although patient mumbling words and not providing clear information at time
patient also tearful while discussing
Objective Data
-
Labs:
Laboratory Results
12/06/23
05:21
WBC 6.6
Hgb 8.2 L
Hct 24.1 L
Plt Count 137
Sodium 133 L
Potassium 3.5
Chloride 103
Carbon Dioxide 25
BUN 19 H
Creatinine 0.3 L
Glucose 79
Calcium 8.2 L
Total Bilirubin 0.7
AST 154 H
ALT 255 H
Alkaline Phosphatase 217 H
Vital Signs:
Vital Signs
Temp Pulse Resp BP Pulse Ox
97.6 F 90 14 104/59 94
12/06/23 07:04 12/06/23 07:04 12/06/23 07:04 12/06/23 07:04 12/06/23 09:16
I&O
12/05/23 12/06/23 12/07/23
06:59 06:59 06:59
Intake Total 2129 / 0 120 / 120
Output Total 50 / 50 400 / 400
Balance 2079 -280 / -280
Review of Systems
-
Unable to obtain full review of systems at this time due to: Language Barrier
Physical Exam
-
General: Appears Chronically Ill
HEENT: Negative Oxygen
Respiratory: Clear to Auscultation; Negative Wheezes
Cardiac: Regular Rhythm and S1/S2; Negative Murmur
Musculoskeletal: No Edema and Other (Right hip dressing in place)
Neuro: Awake, Alert and No Motor Deficits
Psych: Anxious
--- NOTE | 2023-12-06 16:34 | PTCARENOTE ---
Report called to jhony herrera. Acute care transport picked up pt at 1630.
--- NOTE | 2023-12-07 07:34 | W.DCSUMMARY ---
Discharge Summary
Discharge Data
Date of Admission: 12/03/23
Date of Discharge: 12/06/23
-
Pending Results: No
Hospital Course
Discharging Physician : Dr Michele Pennington
Disposition : SNF rehab
Primary care physician : Dr Francisco Lu
Principal Discharge diagnosis :
Mechanical fall and right hip fracture
Postoperative Hypotension
Acute blood loss anemia
Acute transaminitis
Chronic Discharge diagnosis :
Hyperlipidemia
History of myoclonus
History of breast cancer
Depression/anxiety
Gastroesophageal reflux disease
Hospital Course :
88-year-old female with mentioned past medical history brought in for right hip pain with unwitnessed fall. Patient has history of dementia and not able to provide information. Hip x-ray in ER showing a right femoral neck fracture. Orthopedic
surgery was involved in care and after discussion with family patient was taken to the OR for right hip hemiarthroplasty. Postoperative course remained uncomplicated. Patient was started on aspirin 325 mg daily for 4 weeks for DVT prophylaxis per
Ortho recommendation. Patient evaluated by physical therapy and was discharged to [facility] facility for rehab.
Patient had some postoperative hypotension and was initially felt to be effective medication/anesthesia, this cleared without any further intervention.
Patient had some blood loss anemia with hemoglobin trending down to 8.2 on day of discharge, patient was started on oral iron supplement and follow-up prescription for repeat blood work at [facility] was provided.
Patient also had mild transaminitis and may have related to Hypotension episode. No abdominal complaints. Patient on statin which was held with patient having follow-up LFT in 1 week.
Important imaging findings :
None
Procedure findings :
None
Discharge Plan
-
Patient Disposition: Shelter/SNF
Discharge Diagnosis/Procedures: Right hip fracture, Blood loss anemia
Condition: Fair
Diet: Regular
Activity: As tolerated
Additional Activity: weight bearing on bilateral lower extremity on walker/assistance
Driving Restrictions: No driving
Bathing Restrictions: OK to Shower
Blood Work: LFT in 1 week
Other Services: VN and PT
Wound Care: [place] out in 2 weeks at [facility] and If leeann out at [facility] outpatient Ortho follow-up in 4 weeks.
Dressing to remain 10 days post-operatively.
Referrals:
Bhavik Mohr MD [Active] - in three to four weeks
Francisco Lu MD [Family Provider] - in one week
Prescriptions:
New
aspirin 325 mg Tablet
325 mg PO DAILY Qty: 30 0RF
Rx Instructions:
Last dose 01/03/24
oxycodone 5 mg Tablet
5 mg PO Q4HPRN PRN (Reason: sev pain) Qty: 14 0RF
ferrous sulfate 325 mg (65 mg iron) tablet,delayed release (DR/EC)
325 mg PO BID Qty: 60 0RF
Continued
acetaminophen 325 MG tablet
650 mg PO DAILY PRN (Reason: mild pain/temp>100F)
letrozole [Femara] 2.5 MG tablet
2.5 mg PO DAILY
TheraTears 1 EACH dropperette
1 drp BOTH EYES DAILY
cholecalciferol (vitamin D3) 1,000 UNITS tablet
1,000 units PO DAILY
fluoxetine 10 MG capsule
10 mg PO DAILY
famotidine 20 MG tablet
20 mg PO Q72H 0RF
levetiracetam 250 MG tablet
250 mg PO BID 0RF
docusate sodium 100 MG capsule
100 mg PO BID 0RF
sennosides [senna] 8.6 mg Tablet
8.6 mg PO HS
acetaminophen 325 mg Tablet
650 mg PO TID
polyethylene glycol 3350 [Miralax] 17 gram Powder In Packet
17 g PO Q48H
lidocaine [Hemorrhoidal Relief] 5 % Cream
1 applic TOPICAL Q6H PRN (Reason: rectal pain)
magnesium hydroxide [Milk of Magnesia] 400 mg/5 mL Suspension
30 ml PO DAILY PRN (Reason: if no bm x 3 days)
bisacodyl [Dulcolax (bisacodyl)] 10 mg Suppository
10 mg VT DAILY PRN (Reason: if mom ineffective after 24hrs)
Fleet Enema 19-7 gram/118 mL Enema
118 ml VT DAILY PRN (Reason: if dulcolax ineffective after 24hrs)
buspirone 7.5 mg tablet
7.5 mg PO BID
simethicone 80 mg Tablet,Chewable
80 mg PO MEALS
diclofenac sodium 1 % Gel
1 ea TOPICAL BID
Rx Instructions:
apply to left knee
Held
pravastatin 40 mg Tablet
40 mg PO HS Qty: 0
Hold Instructions: Resume on 12/13/23. Resume if repeat liver function normalized.
Patient Comments:
does not know mg
Discharge Orders:
Discharge Patient (As Directed); Ordered 12/06/23
Ordered By: Michele Pennington
Discharge Date and Time
Discharge Date/Time: 12/06/23 16:25
== END 2023-12-06 16:25 | DRG 522 ==
LOC: 2 SOUTH 17:31
PROVIDERS: Physician Assistant; Registered Nurse; ADMITTING PHYSICIAN Internal Medicine; ATTENDING PHYSICIAN Hospitalist; CONSULT PHYSICIAN Specialist; EMERGENCY PHYSICIAN Emergency Medicine; FAMILY PHYSICIAN Internal Medicine
PROC: 0SRR019 Replacement of Right Hip Joint, Femoral Surface with Metal Synthetic Substitute, Cemented, Open Approach (ICD-10-PCS; 2023-12-04)
DX: S72.001A Fracture of unspecified part of neck of right femur, initial encounter for closed fracture (principal); F03.94 Unspecified dementia, unspecified severity, with anxiety; F03.93 Unspecified dementia, unspecified severity, with mood disturbance; D62 Acute posthemorrhagic anemia; Z66 Do not resuscitate; E87.6 Hypokalemia; G25.3 Myoclonus; Z79.811 Long term (current) use of aromatase inhibitors; C50.919 Malignant neoplasm of unspecified site of unspecified female breast; F32.A Depression, unspecified; K21.9 Gastro-esophageal reflux disease without esophagitis; I10 Essential (primary) hypertension; E78.00 Pure hypercholesterolemia, unspecified; I95.81 Postprocedural hypotension
CPT/HCPCS: 70450; 73502; 80048; 80053; 83735; 85025; 85027; 85610; 85730; 86850; 86900; 86901; 93005; 96374; 96375; 97163; 97167; 99285; C1713; C1776